=== PATIENT | female | born 1955 | race African-American/Black ===

== ENCOUNTER 2020-06-19 05:56 | Emergency (ER) | payer OTHER ==
[~2020-06-19] VITALS: Ht 157.5 cm; Wt 68.0 kg
[2020-06-19 08:00] VITALS: BP 142/69
== END 2020-06-19 08:02 | disposition home or self-care (01) ==
LOC: ER 05:56 → EDUNIT# 05:56 → ER 08:02
DX: M54.12 Radiculopathy, cervical region (principal); I10 Essential (primary) hypertension; Z90.710 Acquired absence of both cervix and uterus
CPT/HCPCS: 93005; 99284